=== PATIENT | male | born 1990 | race Caucasian/White ===

== ENCOUNTER 2024-07-26 19:42 | Emergency (ER) | payer BC ==
[~2024-07-26] VITALS: Ht 182.9 cm; Wt 68.2 kg
[2024-07-26 19:52] VITALS: BP 110/73; PULSE 70; RESP 16; TEMP 98.4; O2SAT 100
[2024-07-26] MEDS ORDERED: CLIN-97 PO (21:14)
[2024-07-27] MEDS ORDERED: AMOX-117 PO (17:52)
== END 2024-07-26 21:40 | disposition home or self-care (01) ==
LOC: ER 19:43
DX: K04.7 Periapical abscess without sinus (principal); Z88.1 Allergy status to other antibiotic agents; Z88.2 Allergy status to sulfonamides; Z79.2 Long term (current) use of antibiotics
CPT/HCPCS: 99283

== ENCOUNTER 2024-09-24 21:34 | Emergency (ER) | payer BC, OTHER ==
[~2024-09-24] VITALS: Ht 182.9 cm; Wt 73.2 kg
[~2024-09-24 21:34] MED LIST: CLIN-97 PO
[2024-09-24 21:40] VITALS: BP 127/89; PULSE 121; RESP 16; O2SAT 98
[2024-09-24] MEDS ORDERED: BETA15CR4 TOP (22:49)
[2024-09-24] MEDS ORDERED: TRIA60LO12 TOP (22:49)
[2024-09-24] MEDS ORDERED: HYDR-3686 PO (22:49)
[2024-09-24 22:57] VITALS: TEMP 99.3
[2024-09-25] MEDS ORDERED: HYDR25SU32 RC (15:00)
== END 2024-09-24 23:03 | disposition home or self-care (01) ==
LOC: ER 21:34
DX: L20.9 Atopic dermatitis, unspecified (principal); Z88.2 Allergy status to sulfonamides; Z88.1 Allergy status to other antibiotic agents; Z79.899 Other long term (current) drug therapy
CPT/HCPCS: 99283

== ENCOUNTER 2024-10-07 15:38 | Emergency (ER) | payer MEDICAID, OTHER ==
[~2024-10-07] VITALS: Ht 182.9 cm; Wt 73.2 kg
[~2024-10-07 15:38] MED LIST changes: +BETA15CR4 TOP; +HYDR-3686 PO; +HYDR25SU32 RC; +TRIA60LO12 TOP
[2024-10-07 15:40] VITALS: BP 132/91; PULSE 103; TEMP 98.6; O2SAT 100
[2024-10-07] MEDS ORDERED: HYDR-3965 PO (17:20)
[2024-10-07 17:27] VITALS: RESP 10
[2024-10-07] MEDS: ketorolac trometh 15mg/ml vial 15 MG/ML ML IM ONE (17:27)
== END 2024-10-07 17:30 | disposition home or self-care (01) ==
LOC: ER 15:38
DX: K08.89 Other specified disorders of teeth and supporting structures (principal); Z88.2 Allergy status to sulfonamides; Z88.1 Allergy status to other antibiotic agents
CPT/HCPCS: 96372; 99283; J1885

== ENCOUNTER 2024-10-14 13:28 | Emergency (ER) | payer MEDICAID ==
[~2024-10-14] VITALS: Ht 182.9 cm; Wt 69.0 kg
[~2024-10-14 13:28] MED LIST changes: +HYDR-3965 PO
[2024-10-14] MEDS ORDERED: PRED20TA PO (14:42)
[2024-10-14 15:06] VITALS: BP 123/70; PULSE 64; RESP 16; TEMP 98.1; O2SAT 98
== END 2024-10-14 15:07 | disposition home or self-care (01) ==
LOC: ER 13:28
DX: L20.9 Atopic dermatitis, unspecified (principal); Z88.1 Allergy status to other antibiotic agents; Z88.2 Allergy status to sulfonamides; Z88.8 Allergy status to other drugs, medicaments and biological substances
CPT/HCPCS: 99283

== ENCOUNTER 2024-10-23 15:58 | Emergency (ER) | payer MEDICAID ==
[~2024-10-23] VITALS: Ht 182.9 cm; Wt 76.0 kg
[~2024-10-23 15:58] MED LIST changes: +PRED20TA PO
[2024-10-23] MEDS ORDERED: BENZ9GEL TOP (17:44)
[2024-10-23] MEDS ORDERED: AMOX-117 PO (17:44)
[2024-10-23] MEDS: amox tr/potassium clavulanate 875/125mg TAB PO ONE (17:46)
[2024-10-23 17:58] VITALS: BP 119/68; PULSE 95; RESP 16; TEMP 98.6; O2SAT 98
== END 2024-10-23 17:58 | disposition home or self-care (01) ==
LOC: ER 15:58
DX: K04.7 Periapical abscess without sinus (principal); Z88.2 Allergy status to sulfonamides; Z88.1 Allergy status to other antibiotic agents; Z88.8 Allergy status to other drugs, medicaments and biological substances; Z79.899 Other long term (current) drug therapy
CPT/HCPCS: 99283

== ENCOUNTER 2024-11-02 15:06 | Emergency (ER) | payer MEDICAID ==
[~2024-11-02] VITALS: Ht 182.9 cm; Wt 78.6 kg
[~2024-11-02 15:06] MED LIST changes: +AMOX-117 PO; +BENZ9GEL TOP; -HYDR-3686 PO
[2024-11-02] MEDS ORDERED: AMOX875T10 PO (16:08)
[2024-11-02] MEDS: amoxicillin 250mg capsule PO STA (16:30)
[2024-11-02 16:34] VITALS: BP 118/70; PULSE 80; RESP 16; TEMP 97.7; O2SAT 98
== END 2024-11-02 16:41 | disposition home or self-care (01) ==
LOC: ER 15:07
DX: K04.7 Periapical abscess without sinus (principal); Z88.2 Allergy status to sulfonamides; Z88.1 Allergy status to other antibiotic agents; Z88.8 Allergy status to other drugs, medicaments and biological substances; Z79.899 Other long term (current) drug therapy
CPT/HCPCS: 99283

== ENCOUNTER 2024-11-25 14:44 | Emergency (ER) | payer MEDICAID ==
[~2024-11-25] VITALS: Ht 182.9 cm; Wt 71.4 kg
[~2024-11-25 14:44] MED LIST changes: -AMOX-117 PO; -HYDR-3965 PO; -PRED20TA PO
[2024-11-25] MEDS ORDERED: PRED20TA PO (16:14)
[2024-11-25] MEDS ORDERED: AMOX-580 PO (16:14)
[2024-11-25] MEDS: HYDROcodone/acetaminophen 5mg/325mg tablet PO ONE (16:31)
[2024-11-25] MEDS: dexamethasone sod phosphate 10mg/ml inj IM STA (16:32)
[2024-11-25] MEDS: ketorolac trometh 30MG/ML vial 30 MG/ML VIAL IM ONE (16:33)
[2024-11-25 16:49] VITALS: BP 126/80; PULSE 89; RESP 16; TEMP 98.6; O2SAT 98
== END 2024-11-25 16:55 | disposition home or self-care (01) ==
LOC: ER 14:45
DX: K02.9 Dental caries, unspecified (principal); K04.7 Periapical abscess without sinus; Z88.1 Allergy status to other antibiotic agents; Z88.2 Allergy status to sulfonamides
CPT/HCPCS: 96372; 99284; J1100; J1885

== ENCOUNTER 2025-02-10 11:48 | Emergency (ER) | payer MEDICAID ==
[~2025-02-10] VITALS: Ht 182.9 cm; Wt 54.9 kg
[2025-02-10 11:55] VITALS: BP 113/81; PULSE 106; RESP 15; O2SAT 100
--- NOTE | 2025-02-10 13:03 | Physician Documentation ---
HPI ~ General Chief Complaint: Tooth Problem Stated Complaint: ABCESS TOOTH Time Seen by MD: 12:47 OK to notify your PCP?: Yes Primary Medical Doctor: NONE Source: patient Mode of Arrival: POV Exam Limitations: no limitations History of Present Illness HPI Comment 34 y/o male with c/o painful area right upper back gingiva where he had a molar extracted about a month ago x1day. He states that the pain is associated with some swelling in the same area. He is going to contact the dentist who extracted the tooth to arrange for a follow up. Patient also states that he has been tapering himself off of clonazepam which he was started on two years ago. He states he had a really bad work injury and got started on clonazepam following this. He moved from [place] to [place] and did not get medical until recently and thus has been gradually tapering off of the clonazepam. He took a half a tablet of his clonazepam this morning but states that he feels he is still having some withdrawal symptoms described as feeling l rubi his heart is racing and feeling anxious. He would like to know if there is anything that he could get prescribed that would help with this that is not anything that is habit-forming. He does state that he took propranolol about three years ago and did not have any unwanted side effects to it. No chest pain, shortness of breath, syncopal episodes. No SI or HI. Pt has appointment at [facility] to get established. Medication Reconciliation Allergies: Coded Allergies: Sulfa (Sulfonamide Antibiotics) (Verified Allergy, Unknown, 11/25/24) ciprofloxacin (Verified Allergy, Unknown, 11/25/24) duloxetine (Verified Allergy, Unknown, confusion, 11/25/24) Scheduled Benzocaine (Anbesol), 1 APPLIC TOP Q6H Betamethasone Dipropionate (Betamethasone Dipropionate), 1 APPLIC TOP Q12H Clindamycin HCL* (Clindamycin HCL*), 1 CAP PO Q6H Clindamycin HCL* (Clindamycin HCL*), 1 CAP PO Q6H Hydrocortisone Acetate (Anusol-Hc), 1 SUPP RC Q12H Triamcinolone Acetonide (Triamcinolone Acetonide), 1 APPLIC TOP Q12H Past Medical History Past Medical History: No Pertinent History Review of Systems All Other Systems at this time: Reviewed and Negative Physical Exam Vital Signs: Temperature: 98.4, Source: Temporal, Heart Rate: 106, Respiratory Rate: 15, BP: 113/81, Pulse Oximetry: 100, Weight: 54.900 Physical Exam General Appearance: Alert, WD/WN. NAD. HEENT: NCAT, PERRL, EOMI. No facial swelling, right upper back molar is absent and the gingiva on the buccal side is erythematous with mild edema and tenderness in his area no fluctuance, no edema on the lingual side, posterior pharyngeal wall is normal uvula midline. Neck: Supple, trachea midline. No cervical lymphadenopathy. Cardiovascular: RRR. No m/r/g. Lungs: CTAB. Breathing unlabored Extremities: Normal inspection. No edema. Skin: Warm/dry, normal color Neurological: Alert and oriented x4, normal gait. Psychiatric: Affect congruent with anxious mood. Progress Results/Orders Results/Orders Vital Signs 02/10/25 11:55 Temp 98.4 Pulse 106 Resp 15 B/P (MAP) 113/81 Pulse Ox 100 Medical Decision Making Differential Dx:Considerations: Include: Alveolar fracture, Alveolar osteitis, ANUG, Facial Cellulitis, Periapical abscess, Peridontal abscess, Post-extraction bleeding, Pulpitis, Tooth avulsion, Tooth eruption, Tooth Fracture, Trigeminal neuralgia, Tooth subluxation, Other Departure Time of Disposition: 13:00 Disposition: 01 HOME / SELF CARE / HOMELESS Impression: Primary Impression: Dental abscess Additional Impression: Acute anxiety Condition: Stable Discharge Instructions: Dental Abscess Additional Instructions: rx for propranolol for your anxiety and antibiotic for your took sent to pharmacy salt water rinses f/u with dentist about your tooth and [facility] about your anxiety. Return to emergency room if worsening either your anxiety or your dental pain. Referrals: NO PRIMARY CARE PROVIDER (PCP) Prescriptions Amox Tr/Potassium Clavulanate 875/125 MG (Augmentin 875/125 MG) 875 Mg-125 Mg Tablet 1 TAB PO Q12H for 10 Days, #20 TAB Prov: SHAKILA FUENTES 02/10/25 Propranolol Hcl (Propranolol Hcl) 10 Mg Tablet 1-2 TAB PO DAILY PRN for anxiety MDD 2 for 30 Days, #60 TAB 0 Refills Prov: SHAKILA FUENTES 02/10/25 Education Educated: Patient Educated regarding: diagnosis, treatment, need for follow up Signature Scribe Signature: x Attestation: SHAKILA Gilbert February 10, 2025 13:03
[2025-02-10] MEDS ORDERED: AMOX-580 PO (13:04)
[2025-02-10] MEDS ORDERED: PROP10TA10 PO (13:04)
[2025-02-10 13:40] VITALS: TEMP 98.4
== END 2025-02-10 13:43 | disposition home or self-care (01) ==
LOC: ER 11:49
DX: K04.7 Periapical abscess without sinus (principal); F41.9 Anxiety disorder, unspecified; Z88.1 Allergy status to other antibiotic agents; Z88.2 Allergy status to sulfonamides; Z79.899 Other long term (current) drug therapy
CPT/HCPCS: 99283

== ENCOUNTER 2025-03-18 15:35 | Emergency (ER) | payer MEDICAID ==
[~2025-03-18] VITALS: Ht 182.9 cm; Wt 72.0 kg
[~2025-03-18 15:35] MED LIST changes: +PROP10TA10 PO
--- NOTE | 2025-03-18 16:52 | Physician Documentation ---
History of Present Illness ~ Chief Complaint: Abscess Stated Complaint: ABSCESS Time Seen by MD: 16:22 Primary Medical Doctor: NONE HPI Patient is seen today with complaints of abscess tooth of right lower jaw. Patient states he has right lower molar broke quite a while ago and just a few days ago began feeling pressure and pain. Patient denies any fevers or chills. He has no other concern or complaint at this time. Tetanus Within 5 Years: No Medication Reconciliation Allergies: Coded Allergies: Sulfa (Sulfonamide Antibiotics) (Verified Allergy, Unknown, 11/25/24) ciprofloxacin (Verified Allergy, Unknown, 11/25/24) duloxetine (Verified Allergy, Unknown, confusion, 11/25/24) Scheduled Amoxicillin Trihydrate (Amoxicillin), 1 TAB PO Q12H Benzocaine (Anbesol), 1 APPLIC TOP Q6H Betamethasone Dipropionate (Betamethasone Dipropionate), 1 APPLIC TOP Q12H Clindamycin HCL* (Clindamycin HCL*), 1 CAP PO Q6H Clindamycin HCL* (Clindamycin HCL*), 1 CAP PO Q6H Hydrocortisone Acetate (Anusol-Hc), 1 SUPP RC Q12H Ibuprofen (Ibuprofen), 1 TAB PO Q8H Triamcinolone Acetonide (Triamcinolone Acetonide), 1 APPLIC TOP Q12H Scheduled PRN Acetaminophen (Tylenol Extra Strength), 2 TAB PO Q6H PRN PRN for pain or fever Propranolol Hcl (Propranolol Hcl), 1-2 TAB PO DAILY PRN for anxiety Past Medical History Past Medical History: No Pertinent History Review of Systems Constitutional: Denies: chills, fever, weakness Eyes: Denies: pain, blurred vision ENT: Denies: ear pain, nose pain, throat pain, mouth pain Respiratory: Denies: cough, shortness of breath Cardiovascular: Denies: chest pain, palpitations Gastrointestinal: Denies: abdominal pain, nausea, vomiting Genitourinary: Denies: burning, dysuria Male Genitalia: Denies: penile discharge, testicular pain Neurological: Denies: headache, dizziness Musculoskeletal: Denies: pain, swelling Integumentary: Denies: rash, lesions Allergic/Immunologic: Denies: hives, itching Hematologic/Lymphatic: Denies: no symptoms reported Psychiatric: Denies: depression, anxiety Physical Exam Vital Signs: Temperature: 98.7, Heart Rate: 66, Respiratory Rate: 16, BP: 106/69, Pulse Oximetry: 100, Weight: 72.000 Physical Exam General: Awake and Alert, no acute distress. HEENT: Patient on exam does have fractured molar of the right lower side with swelling of the gums without visual as periapical abscess. Conjunctiva pink, Sclera clear, Mucus Membranes moist. Neck: Supple without masses and tenderness. Resp: Unlabored. Lungs clear to auscultation bilaterally. Heart: Regular Rate and rhythm, normal S1 and S2 without murmur, rub or gallop. Extremities: No cyanosis,clubbing or edema. Skin: Warm and Dry. Progress Results/Orders Results/Orders Completed Orders - KONRAD GILLIS Amoxicillin Capsule (Trimox Capsule) (03/18/25 16:44) Ibuprofen Tablet (Motrin Tablet) (03/18/25 16:44) Acetaminophen 325mg Tablet (Tylenol Tabl (03/18/25 16:45) Medications Received in ER Medications (Trade) Dose Ordered Sig/Nannette Route PRN Reason Start Time Stop Time Status Last Admin Dose Admin (Trimox capsule) 1,000 mg ONCE STAT PO 03/18/25 16:44 03/18/25 16:55 DC 03/18/25 17:04 1,000 MG (Motrin tablet) 800 mg ONCE STAT PO 03/18/25 16:44 03/18/25 16:55 DC 03/18/25 17:04 800 MG (Tylenol tablet) 325 mg ONCE ONCE PO 03/18/25 16:45 03/18/25 16:55 DC 03/18/25 17:04 325 MG Vital Signs 03/18/25 15:54 Temp 98.7 Pulse 66 Resp 16 B/P (MAP) 106/69 Pulse Ox 100 Medical Decision Making Findings Patient is seen today with complaints of abscess tooth of right lower jaw. Patient states he has right lower molar broke quite a while ago and just a few days ago began feeling pressure and pain. Patient denies any fevers or chills. He has no other concern or complaint at this time. Patient was given amoxicillin a 1000 mg in the ED today along with Tylenol and ibuprofen. Prescription of amoxicillin 875 mg one tab twice a day sent to patient's pharmacy. Patient will follow up with dentist as soon as possible. Return to ED with any worsening, concerning or changing symptoms. Departure Disposition: 01 HOME / SELF CARE / HOMELESS Impression: Primary Impression: Dental abscess Condition: Stable Discharge Instructions: Dental Abscess, [id number] Additional Instructions: Patient was given amoxicillin a 1000 mg in the ED today along with Tylenol and ibuprofen. Prescription of amoxicillin 875 mg one tab twice a day sent to patient's pharmacy. Patient will follow up with dentist as soon as possible. Return to ED with any worsening, concerning or changing symptoms. Referrals: NO PRIMARY CARE PROVIDER (PCP) Prescriptions Acetaminophen (Tylenol Extra Strength) 500 Mg Tablet 2 TAB PO Q6H PRN PRN for pain or fever for 7 Days, #56 TAB Prov: KONRAD GILLIS 03/18/25 Ibuprofen (Ibuprofen) 800 Mg Tablet 1 TAB PO Q8H for pain for 10 Days, #30 TAB 0 Refills Prov: KONRAD GILLIS 03/18/25 Amoxicillin Trihydrate (Amoxicillin) 875 Mg Tablet 1 TAB PO Q12H for 10 Days, #20 TAB Prov: KONRAD GILLIS 03/18/25 Signature Scribe Signature: No scribe Attestation: No scribe KONRAD GILLIS Mar 18, 2025 16:52
[2025-03-18] MEDS: ibuprofen tablet 400 MG TABLET PO STA (17:04)
[2025-03-18] MEDS: amoxicillin 250mg capsule PO STA (17:04)
[2025-03-18] MEDS: acetaminophen 325mg tablet PO ONE (17:04)
[2025-03-18] MEDS ORDERED: ACET-1025 PO (17:37)
[2025-03-18] MEDS ORDERED: AMOX875T10 PO (17:37)
[2025-03-18] MEDS ORDERED: IBUP-1986 PO (17:37)
[2025-03-18 17:49] VITALS: BP 119/61; PULSE 64; RESP 16; TEMP 98.7; O2SAT 99
== END 2025-03-18 17:50 | disposition home or self-care (01) ==
LOC: ER 15:36
DX: K04.7 Periapical abscess without sinus (principal); Z88.2 Allergy status to sulfonamides; Z88.1 Allergy status to other antibiotic agents; Z79.899 Other long term (current) drug therapy
CPT/HCPCS: 99284

== ENCOUNTER 2025-06-20 11:03 | Emergency (ER) | payer MEDICAID ==
[~2025-06-20] VITALS: Ht 182.9 cm; Wt 75.5 kg
[~2025-06-20 11:03] MED LIST changes: +CLIN-224 PO; -CLIN-97 PO; +IBUP-1986 PO
--- NOTE | 2025-06-20 11:18 | Physician Documentation ---
History of Present Illness ~ Chief Complaint: Back Pain Stated Complaint: NUMBNESS IN LEGS Time Seen by MD: 11:23 Primary Medical Doctor: NONE HPI MSE: Patient is a 34-year-old male that presents to the emergency department for worsening of bilateral numbness that is increasing over the last 2 weeks. Patient reports he has a significant surgical history of his back x5 surgeries. Reports he has numbness of the left side of his genitals particularly the scrotum at this time. Denies any bowel or bladder incontinence. Patient reports significant lower back/spine pain at the previous surgical site. Medication Reconciliation Allergies: Coded Allergies: Sulfa (Sulfonamide Antibiotics) (Verified Allergy, Unknown, 11/25/24) ciprofloxacin (Verified Allergy, Unknown, 11/25/24) duloxetine (Verified Allergy, Unknown, confusion, 11/25/24) Scheduled Benzocaine (Anbesol), 1 APPLIC TOP Q6H Betamethasone Dipropionate (Betamethasone Dipropionate), 1 APPLIC TOP Q12H Clindamycin HCL* (Clindamycin HCL*), 1 CAP PO Q6H Clindamycin HCL* (Clindamycin HCL*), 1 CAP PO Q6H Cyclobenzaprine* (Cyclobenzaprine*), 1 TAB PO Q8H Hydrocortisone Acetate (Anusol-Hc), 1 SUPP RC Q12H Ibuprofen (Ibuprofen), 1 TAB PO Q8H Ondansetron 8mg ODT (Ondansetron Odt), 1 TAB PO Q6H Triamcinolone Acetonide (Triamcinolone Acetonide), 1 APPLIC TOP Q12H Scheduled PRN Hydrocodone Bit/Acetaminophen 5/325 MG (Highland 5/325 MG), 1-2 TAB PO Q4-6 hours PRN for pain Propranolol Hcl (Propranolol Hcl), 1-2 TAB PO DAILY PRN for anxiety Past Medical History Past Medical History: No Pertinent History Physical Exam Physical Exam Vital Signs: Temperature: 98.5, Source: Temporal, Heart Rate: 103, Respiratory Rate: 18, BP: 122/92, Pulse Oximetry: 99, Weight: 75.450 Oxygen Flow Rate: 0 Physical Exam I have reviewed the triage vitals. CONST: Well developed and well nourished. In severe distress due to pain. HENT: Head Atraumatic EYES: Pupils are equal, round and reactive to light. Normal conjunctiva NECK: Normal range of motion. Supple. CARDIO: Normal rate and regular rhythm. No murmurs, rubs, or gallops. S1, S2. PULM/CHEST: No respiratory distress. Lungs clear to auscultation. No wheeze ABD: Soft and nontender. Nondistended. Bowel sounds normal. No guarding. : Exam deferred MSK: No edema. No deformity. NEURO: Alert and oriented to person, place and time. Moving all extremities. Straight leg raise is positive bilaterally. Decreased sensation to light touch over the bilateral lower extremities. No sensation over the left groin area. SKIN: Warm and dry. PSYCH: Extremely tearful and anxious. Progress Results/Orders Results/Orders Orders - ADONAY SOLANO MD Ct Lumbar Spine (06/20/25 12:13) Mri Lumbar Spine (06/20/25 20:30) Completed Orders - ADONAY SOLANO MD Fentanyl/Pf (Fentanyl 0.05 Mg/Ml Syringe (06/20/25 11:30) Dexamethasone Inj (Decadron 10mg/Ml Inj) (06/20/25 11:28) Cbc/Diff (06/20/25 11:29) BMP (06/20/25 11:29) ESR (06/20/25 11:29) C-Reactive Protein (06/20/25 11:29) Ct Lumbar Spine (06/20/25 12:13) Mri Lumbar Spine (06/20/25 20:30) Ondansetron Inj. (Zofran 4mg/2ml Vial) (06/20/25 12:50) Hydromorphone 1 Mg/Ml/Pf (Dilaudid Inj.) (06/20/25 12:50) Diazepam Inj (Valium Inj) (06/20/25 13:00) Hydromorphone 1 Mg/Ml/Pf (Dilaudid Inj.) (06/20/25 17:20) Diazepam Inj (Valium Inj) (06/20/25 17:40) Electrocardiogram (06/20/25 17:40) Vital Signs 06/20/25 06/20/25 06/20/25 06/20/25 11:07 11:16 11:30 11:43 Temp 98.5 Pulse 103 86 Resp 18 18 16 16 B/P (MAP) 122/92 124/78 (93) Pulse Ox 99 97 O2 Flow Rate 0 0 06/20/25 06/20/25 06/20/25 06/20/25 13:02 13:04 14:00 14:20 Temp 98.0 Pulse 93 79 Resp 22 21 12 16 B/P (MAP) 167/114 (131) 110/65 (80) Pulse Ox 97 95 O2 Flow Rate 0 0 06/20/25 06/20/25 06/20/25 06/20/25 15:00 17:19 17:49 17:50 Pulse 66 66 Resp 14 16 16 16 B/P (MAP) 110/73 (85) 124/80 (95) Pulse Ox 96 97 O2 Flow Rate 0 0 06/20/25 06/20/25 06/20/25 19:01 19:55 19:58 Pulse 96 97 Resp 16 18 16 B/P (MAP) 130/74 (92) 127/89 Pulse Ox 96 98 O2 Flow Rate 0 Laboratory Tests Test 06/20/25 11:29 White Blood Count 5.8 Red Blood Count 5.56 Hemoglobin 16.7 Hematocrit 49.8 Mean Corpuscular Volume 89.6 Mean Corpuscular Hemoglobin 30.1 Mean Corpuscular Hemoglobin Concent 33.6 Red Cell Distribution Width 13.2 Platelet Count 181 Mean Platelet Volume 10.0 Neutrophils (%) (Auto) 46.2 Lymphocytes (%) (Auto) 44.8 Monocytes (%) (Auto) 7.0 Eosinophils (%) (Auto) 1.4 Basophils (%) (Auto) 0.6 Neutrophils # (Auto) 2.7 Lymphocytes # (Auto) 2.6 Monocytes # (Auto) 0.4 Eosinophils # (Auto) 0.1 Basophils # (Auto) 0.0 CBC Comment Erythrocyte Sedimentation Rate 1 Sodium Level 143 Potassium Level 4.1 Chloride Level 109 H Carbon Dioxide Level 18.5 L Anion Gap 16 Blood Urea Nitrogen 14 Creatinine 0.88 Estimated GFR/1.73 m2 > 90 BUN/Creatinine Ratio 15.9 Glucose Level 106 H Calcium Level 9.3 C-Reactive Protein < 0.05 Albumin 4.2 Chemistry Comments EKG/XRAY/CT/US/VASC/MRI CT : Impression EXAM: CT CT LUMBAR SPINE INDICATION: saddle anesthesia and lower extremity numbness, CAUDA EQUINA TECHNIQUE: Axial images of the lumbar spine have been obtained along with coronal and sagittal reformatted images. CT scans at this facility use dose modulation, iterative reconstruction, and/or weight based dosing when appropriate to reduce radiation dose to as low as reasonably achievable. COMPARISON: None FINDINGS: ANATOMY: Five lumbar-type vertebral bodies are present. The most inferior well- formed disc space will be referred to as L5-S1 for purposes of numbering in this report. VERTEBRAL BODIES: The vertebral bodies are normal in height and alignment. posterior fusion hardware from L3-S1. Intervertebral disc spacer at L3-4, L4-5, L5-S1. Posterior decompression of the lower lumbar spine no osseous lucency along the hardware bone interfaces. No perihardware fracture. Bilateral trans sacroiliac screws. SPINAL CANAL: No spinal canal narrowing. INTERVERTEBRAL DISCS: No significant posterior osteophyte complex FACETS: Multilevel mild to moderate facet arthropathy. OTHER: Gallbladder is surgically absent. IMPRESSION: 1. No CT evidence of an acute fracture. 2. No significant central canal narrowing. 3. Consider further evaluation with myelogram : Impression EXAM: MR MRI LUMBAR SPINE CLINICAL HISTORY: Lower back pain with saddle anesthesia and lower extremity numbness COMPARISON: CT CT LUMBAR SPINE on DOS: 06/20/25 TECHNIQUE: MRI imaging of the lumbar was performed on a MRI imaging system without intravenous contrast. FINDINGS: Posterior fusion hardware spans L3 through S1 with associated susceptibility artifact degrading evaluation. There is no acute fracture. The conus terminates at L1 and is unremarkable in appearance. The paraspinal soft tissues are unremarkable. At the T12-L1 level, there is no evidence of central spinal canal or neuroforaminal stenosis. At the L1-L2 level, there is no evidence of central spinal canal or neuroforaminal stenosis. At the L2-L3 level, there is facet arthropathy. There is no evidence of central spinal canal or neuroforaminal stenosis. At the L3-L4 level, there is facet arthropathy without significant central spinal canal or neuroforaminal stenosis. At the L4-L5 level, evaluation is degraded by artifact, there is no significant spinal canal or neural foraminal stenosis. At the L5-S1 level, evaluation is degraded by artifact, though there is no evidence of central canal stenosis. There is probable at least mild bilateral neural foraminal stenosis. IMPRESSION: 1. Postsurgical changes of the lumbar spine as detailed without evidence of significant spinal stenosis. Medical Decision Making Findings Upon re-evaluation patient is sitting comfortably in bed. Received care of patient to follow up MRI. MRIs reassuring. Symptoms consistent with radiculopathy. Differential Diagnosis 34 yo M presenting w/ severe lower back pain, partial saddle anesthesia and BL lumbar radiculopathy. He required high doses of opioids for pain control including IV Fentanyl and multiple doses of IV dilaudid. Also extremely anxious and given IV diazepam. CT negative for fracture. MRI lumbar spine pending to r/o cauda equina. Signed out to incoming ED physician. Departure Disposition: HOME / SELF CARE / HOMELESS Impression: Primary Impression: Back problem Condition: Stable Discharge Instructions: Lumbosacral Radiculopathy Referrals: NO PRIMARY CARE PROVIDER (PCP) Prescriptions Cyclobenzaprine* (Cyclobenzaprine*) 10 Mg Tablet 1 TAB PO Q8H for muscle spasms for 10 Days, #30 TAB 0 Refills Prov: ANDRES QUIROGA MD 06/20/25 Ondansetron 8mg ODT (Ondansetron Odt) 8 Mg Tab.rapdis 1 TAB PO Q6H for nausea/vomiting for 3 Days, #12 TAB 0 Refills Prov: ANDRES QUIROGA MD 06/20/25 Hydrocodone Bit/Acetaminophen 5/325 MG (Highland 5/325 MG) 5 Mg/325 Mg Tablet 1-2 TAB PO Q4-6 hours PRN for pain, #10 TAB Prov: ANDRES QUIROGA MD 06/20/25 Education Educated: Patient Educated regarding: diagnosis, treatment, need for follow up Signature Scribe Signature: No scribe Attestation: The note accurately reflects work and decisions made by me.Adonay Seals MD 06/24/25 15:50 The note accurately reflects work and decisions made by me.Andres Quiroga MD 06/20/25 19:39 MANDIE YU Jun 20, 2025 11:18 ADONAY SOLANO MD Jun 20, 2025 11:33 ANDRES QUIROGA MD Jun 20, 2025 19:39
[2025-06-20] MEDS: dexamethasone sod phosphate 10mg/ml inj IV STA (11:43)
[2025-06-20] MEDS: fentaNYL/PF 50MCG/1 ML 2ML syringe IV ONE (11:43)
[2025-06-20 12:02] LABS: MEAN PLATELET VOLUME 10.0 FL (7.4-10.4); RED CELL DISTRIBUTION WIDTH 13.2 % (11.5-14.5)
[2025-06-20 12:04] LABS: CREATININE 0.88 MG/DL (0.60-1.10); TOTAL CARBON DIOXIDE 18.5 MMOL/L (24-32); eCRCL 126 ML/MIN; eGFR > 90 ML/MIN
--- NOTE | 2025-06-20 13:01 | RADIOLOGY REPORT ---
EXAM: CT CT LUMBAR SPINE INDICATION: saddle anesthesia and lower extremity numbness, CAUDA EQUINA TECHNIQUE: Axial images of the lumbar spine have been obtained along with coronal and sagittal reformatted images. CT scans at this facility use dose modulation, iterative reconstruction, and/or weight based dosing when appropriate to reduce radiation dose to as low as reasonably achievable. COMPARISON: None FINDINGS: ANATOMY: Five lumbar-type vertebral bodies are present. The most inferior well- formed disc space will be referred to as L5-S1 for purposes of numbering in this report. VERTEBRAL BODIES: The vertebral bodies are normal in height and alignment. posterior fusion hardware from L3-S1. Intervertebral disc spacer at L3-4, L4-5, L5-S1. Posterior decompression of the lower lumbar spine no osseous lucency along the hardware bone interfaces. No perihardware fracture. Bilateral trans sacroiliac screws. SPINAL CANAL: No spinal canal narrowing. INTERVERTEBRAL DISCS: No significant posterior osteophyte complex FACETS: Multilevel mild to moderate facet arthropathy. OTHER: Gallbladder is surgically absent. IMPRESSION: 1. No CT evidence of an acute fracture. 2. No significant central canal narrowing. 3. Consider further evaluation with myelogram
[2025-06-20] MEDS: ondansetron/PF 4mg/2ml inj IV ONE (13:02)
[2025-06-20] MEDS: diazepam inj 5 MG/ML inj. IV ONE ×2 (13:02→17:49)
[2025-06-20 13:04] VITALS: TEMP 98
--- NOTE | 2025-06-20 17:47 | ELECTROCARDIOGRAPH REPORT ---
[facility] Test Date: 2025-06-20 Test Time: 17:44:59 Pat Name: LANCE MACEDO Department: [facility]- Patient ID: [facility]-[id number] Room: Gender: M Adjuster: : 1990 Requested By: GIANNI SOLANO Order Number: [id number] Reading MD: Dr. Bryan Burns Measurements Intervals Lane Rate: 74 P: 90 NH: 147 QRS: 209 QRSD: 104 T: 67 QT: 361 QTc: 401 Interpretive Statements Sinus rhythm Atrial premature complexes in couplets Consider left atrial enlargement Right axis deviation ST elev, probable normal early repol pattern Electronically Signed On 06-29-2025 21:52:[address] Bryan Burns Please click the below link to view image of tracing.
--- NOTE | 2025-06-20 19:25 | RADIOLOGY REPORT ---
EXAM: MR MRI LUMBAR SPINE CLINICAL HISTORY: Lower back pain with saddle anesthesia and lower extremity numbness COMPARISON: CT CT LUMBAR SPINE on DOS: 06/20/25 TECHNIQUE: MRI imaging of the lumbar was performed on a MRI imaging system without intravenous contrast. FINDINGS: Posterior fusion hardware spans L3 through S1 with associated susceptibility artifact degrading evaluation. There is no acute fracture. The conus terminates at L1 and is unremarkable in appearance. The paraspinal soft tissues are unremarkable. At the T12-L1 level, there is no evidence of central spinal canal or neuroforaminal stenosis. At the L1-L2 level, there is no evidence of central spinal canal or neuroforaminal stenosis. At the L2-L3 level, there is facet arthropathy. There is no evidence of central spinal canal or neuroforaminal stenosis. At the L3-L4 level, there is facet arthropathy without significant central spinal canal or neuroforaminal stenosis. At the L4-L5 level, evaluation is degraded by artifact, there is no significant spinal canal or neural foraminal stenosis. At the L5-S1 level, evaluation is degraded by artifact, though there is no evidence of central canal stenosis. There is probable at least mild bilateral neural foraminal stenosis. IMPRESSION: 1. Postsurgical changes of the lumbar spine as detailed without evidence of significant spinal stenosis.
[2025-06-20] MEDS ORDERED: CYCL-1 PO (19:39)
[2025-06-20] MEDS ORDERED: ONDA-245 PO (19:39)
[2025-06-20] MEDS ORDERED: HYDR-3965 PO (19:39)
[2025-06-20] MEDS: ketorolac trometh 15mg/ml vial 15 MG/ML ML IV ONE (19:55)
[2025-06-20] MEDS: acetaminophen 1,000mg/100ml IV 100 ML IV ONE (19:55)
[2025-06-20 19:58] VITALS: BP 127/89; PULSE 97; RESP 16; O2SAT 98
== END 2025-06-20 20:35 | disposition home or self-care (01) ==
LOC: ER 11:03
DX: M54.10 Radiculopathy, site unspecified (principal); Z88.2 Allergy status to sulfonamides; Z88.1 Allergy status to other antibiotic agents; Z79.899 Other long term (current) drug therapy
CPT/HCPCS: 36415; 72131; 72148; 80048; 85025; 85651; 86140; 93005; 96374; 96375; 96376; 99285; J0131; J1100; J1171; J1885; J2405; J3010; J3360